=== PATIENT | female | born 1995 | race American Indian/Alaskan Native ===

== ENCOUNTER 2019-09-10 20:10 | Emergency (ER) | payer OTHER, MEDICAID ==
[2019-09-10 20:26] VITALS: BP 124/83
--- NOTE | 2019-09-10 21:48 | Event Note ---
ED Screening Note Date of service: 09/10/19 Time: 21:44 ED Screening Note: This is a 24 y.o. F. that presents to the ER with cramps for 2-3 weeks. Reports pain worse this past week. Patient is 17 weeks gestation. Patient states she was told she had fibroids with last US. Penatal care with [facility]. Denies dysuria, back pain, vaginal discharge. LMP 05/2019, 1 This initial assessment/diagnostic orders/clinical plan/treatment(s) is/are subject to change based on patients health status, clinical progression and re- assessment by fellow clinical providers in the ED. Further treatment and workup at subsequent clinical providers discretion. Patient/guardian urged not to elope from the ED as their condition may be serious if not clinically assessed and managed. Initial orders include: Labs OB US
[2019-09-10 22:30] LABS: Bilirubin,Urine NEG (Negative); Blood,Urine NEG (Negative); Color,Urine Yellow (Yellow); Mucus,Urine FEW /HPF; Protein,Urine <15 mg/dL mg/dL (Negative); Urobilinogen,Urine < 2.0 mg/dL (<2.0)
[2019-09-10 22:33] LABS: HCG Qualitative,Urine Positive (Negative); WBC,Urine < 1.0 /HPF (0.0-6.0)
--- NOTE | 2019-09-11 01:18 | Ultrasound Report ---
ULTRASOUND OBSTETRIC INDICATION / CLINICAL INFORMATION: abdominal pain, 17 wks gest. Clinical Gestational Age (GA): Approximately 17 weeks gestation TECHNIQUE: Transabdominal. COMPARISON: None available. FINDINGS: There is a single intrauterine . Biparietal Diameter = 3.6 cm = 17 weeks, 1 day(s). Head Circumference = 13.1 cm = 16 weeks, 5 day(s). Abdominal Circumference = 10.1 cm = 16 weeks, 1 day(s). Femur Length = 2.0 cm = 16 weeks, 0 day(s). Average Ultrasound Age (AUA) = 16 weeks, 4 day(s). Heart Rate: 144 beats per minute. Estimated Weight in grams (if calculated): 147 g Estimated Weight Growth Percentile (if calculated): Not calculated Position: cephalic. Cervix: closed. Length in cm (if measured): 3.3 Placenta: posterior and free of the os. Amniotic Fluid Volume: normal Amniotic Fluid Index (HILARY) in cm (if calculated): Not calculated. Maternal Adnexa: No significant abnormality. Please note there is a 4.3 cm fibroid noted in the region of the lower uterine segment. IMPRESSION: 1. Single, living intrauterine with estimated sonographic age of 16 weeks, 4 day(s). 2. No significant sonographic abnormality. 3. Incidental finding of 4.3 cm fibroid in the region of the lower uterine segment posteriorly Signer Name: Augustina Ortiz MD Signed: 09/11/2019 1:14 AM Workstation Name: [id number]
== END 2019-09-11 01:00 | disposition left against medical advice (07) ==
LOC: ED 20:10
DX: O26.892 Other specified pregnancy related conditions, second trimester (principal); Z53.21 Procedure and treatment not carried out due to patient leaving prior to being seen by health care provider
CPT/HCPCS: 36415; 76805; 81001; 81025; 84702